=== PATIENT | male | born 1940 | race Caucasian/White ===

== ENCOUNTER 2017-01-12 04:06 | Emergency (ER) | payer MEDICARE, OTHER ==
[2017-01-12] MEDS ORDERED: Sodium Chloride 0.9% 1,000 ML IV ONE ×2 (04:34→05:58)
--- NOTE | 2017-01-12 04:36 | EDM.PDOC ---
ED HPI GENERAL MEDICAL PROBLEM - General Chief Complaint: Gastrointestinal Problem Stated Complaint: DIARRHEA Time Seen by Provider: 01/12/17 04:06 Source of Information: Reports: Patient History Limitations: Reports: No Limitations - History of Present Illness INITIAL COMMENTS - FREE TEXT/NARRATIVE: 76 y.o.w.m in prev healthy condition, came the the ed by PC due to N/V/D in the fast 6 hours.Pt stated he ate out last night. Pt denies blood in his stool , no travel outside [place], epigastric pain. No do dizziness but feels very weak. BP 110/63 pulse 73 temp 34.6 Onset Date: 01/11/17 Onset Time: 21:00 Duration: Hour(s):, Intermittent Location: Reports: Abdomen Quality: Reports: Burning Severity: Moderate Improves with: Reports: Rest Worsens with: Reports: Eating, Movement Context: Reports: Other (eating out) Associated Symptoms: Reports: Nausea/Vomiting, Weakness Bilateral Leg Pain Score (Numeric/FACES): 6 - Related Data Allergies Allergy/AdvReac Type Severity Reaction Status Date / Time No Known Allergies Allergy Verified 01/12/17 04:38 Home Meds: Home Meds Hydrochlorothiazide [Hydrochlorothiazide] 25 mg PO DAILY 01/12/17 [History] Levothyroxine [Levothroid] 137 mcg PO DAILY 01/12/17 [History] Ondansetron [Zofran ODT] 8 mg PO Q6H PRN #10 tab.dis 01/12/17 [Rx] ED ROS GENERAL - Review of Systems Review Of Systems: See Below Constitutional: Reports: No Symptoms HEENT: Reports: No Symptoms Respiratory: Reports: No Symptoms Cardiovascular: Reports: No Symptoms Endocrine: Reports: No Symptoms GI/Abdominal: Reports: Abdominal Pain (minor epigastric pain), Diarrhea, Nausea , Vomiting : Reports: No Symptoms Musculoskeletal: Reports: No Symptoms Skin: Reports: No Symptoms Neurological: Reports: No Symptoms Psychiatric: Reports: No Symptoms Hematologic/Lymphatic: Reports: No Symptoms Immunologic: Reports: No Symptoms ED EXAM, GI/ABD - Physical Exam Exam: See Below Exam Limited By: No Limitations General Appearance: Alert, WD/WN, Moderate Distress Eyes: Bilateral: Normal Appearance Ears: Normal External Exam Nose: Normal Inspection Throat/Mouth: Normal Lips, Normal Gums, No Airway Compromise, Other (dry mucosal membrane) Head: Atraumatic, Normocephalic Neck: Normal Inspection, Supple, Non-Tender Respiratory/Chest: No Respiratory Distress, Lungs Clear, Normal Breath Sounds, No Accessory Muscle Use, Chest Non-Tender Cardiovascular: Normal Peripheral Pulses, Regular Rate, Rhythm, No Edema, No Gallop, No JVD, No Murmur, No Rub GI/Abdominal Exam: Normal Bowel Sounds, Tender (epigastric area) (Male) Exam: Deferred Rectal (Males) Exam: Deferred Back Exam: Normal Inspection, Full Range of Motion Extremities: Normal Inspection, Normal Range of Motion, Non-Tender, No Pedal Edema Neurological: Alert, Oriented, CN II-XII Intact, Normal Cognition, Normal Gait, No Motor/Sensory Deficits Psychiatric: Normal Affect, Normal Mood Skin Exam: Warm, Dry, Intact, Normal Color, No Rash Lymphatic: No Adenopathy Course - Vital Signs Text/Narrative:: 76 y.o.w.m in prev healthy condition, came the the ed by PC due to N/V/D in the fast 6 hours.Pt stated he ate out last night. Pt denies blood in his stool , no travel outside [place], epigastric pain. No do dizziness but feels very weak. BP 110/63 pulse 73 temp 34.6 PE: thin 76 y.o.w.m NAD with dry mucosal membranes and decr. skin turgor, ambulating fine Labs: WBC 14.4 H/H nl BUN 34 Cr 1.7 GFR 39 Na 139 K 4.1 Impression: Dehydration, Gastroenteritis, Decr. GFR Tx: Zofran, Protonix, NS Reexam: Improved, was ambulating on D/C Plan: D/C with instructions Last Recorded V/S: Last Vital Signs Temp 34.6 C L 01/12/17 05:12 Pulse 73 01/12/17 05:12 Resp 18 01/12/17 05:12 BP 100/61 01/12/17 05:12 Pulse Ox 99 01/12/17 05:12 - Orders/Labs/Meds Orders: Active Orders 24 hr Category Date Time Status CULTURE-STOOL [MREF] Stat Lab 01/12/17 04:34 Uncollected LACTOFERRIN, FECAL BY EDOUARD [REF] Stat Lab 01/12/17 04:34 Ordered Sodium Chloride 0.9% [Saline Flush] Med 01/12/17 04:38 Active 10 ml FLUSH ASDIRECTED PRN Saline Lock Insert [OM.PC] Routine Oth 01/12/17 04:38 Ordered Medication Orders Sodium Chloride (Saline Flush) 10 ml FLUSH ASDIRECTED PRN PRN Reason: Keep Vein Open Last Admin: 01/12/17 04:44 Dose: 10 ml Labs: Laboratory Tests 01/12/17 01/12/17 01/12/17 Range/Units 05:00 05:00 05:00 WBC 14.4 H (4.5-12.0) X10-3/uL RBC 4.88 (4.30-5.75) x10(6)uL Hgb 14.9 (11.5-15.5) g/dL Hct 44.2 (30.0-51.3) % MCV 90.8 (80-96) fL MCH 30.6 (27.7-33.6) pg MCHC 33.7 (32.2-35.4) g/dL RDW 12.7 (11.5-15.5) % Plt Count 348 (125-369) X10(3)uL MPV 8.4 (7.4-10.4) fL Add Manual Diff Yes Neutrophils % (Manual) 94 H (46-82) % Band Neutrophils % 1 (0-6) % Monocytes % (Manual) 4 (4-12) % Eosinophils % (Manual) 1 (0-5) % Sodium 139 (135-145) mmol/L Potassium 4.1 (3.5-5.3) mmol/L Chloride 105 (100-110) mmol/L Carbon Dioxide 22 L (23-29) mmol/L BUN 34 H (8-23) mg/dL Creatinine 1.7 H (0.6-1.3) mg/dL Est Cr Clr Drug Dosing 36.19 mL/min Estimated GFR (MDRD) 39 L (>60) BUN/Creatinine Ratio 20.0 (9-20) Glucose 169 H (80-116) mg/dL Calcium 8.9 (8.6-10.2) mg/dL Total Bilirubin 1.0 (0.1-1.3) mg/dL Direct Bilirubin 0.2 (0.1-0.2) mg/dL AST 22 (5-27) IU/L ALT 20 (14-26) IU/L Alkaline Phosphatase 54 L (56-112) IU/L Total Protein 8.0 (6.0-8.0) g/dL Albumin 4.6 (3.2-4.6) g/dL Amylase 47 (28-100) U/L Meds: Medications Generic Name Dose Route Start Last Admin Trade Name Neto PRN Reason Stop Dose Admin Sodium Chloride 10 ml 01/12/17 04:38 01/12/17 04:44 Saline Flush FLUSH 10 ml ASDIRECTED PRN Administration Keep Vein Open Discontinued Medications Generic Name Dose Route Start Last Admin Trade Name eNto PRN Reason Stop Dose Admin Sodium Chloride 1,000 mls @ 999 mls/hr 01/12/17 04:34 01/12/17 04:47 Normal Saline IV 01/12/17 05:34 999 mls/hr .BOLUS ONE Administration Sodium Chloride 1,000 mls @ 999 mls/hr 01/12/17 05:58 01/12/17 06:08 Normal Saline IV 01/12/17 06:58 999 mls/hr .BOLUS ONE Administration Ondansetron HCl 8 mg 01/12/17 05:58 01/12/17 06:26 Zofran IVPUSH 01/12/17 05:59 8 mg ONETIME ONE Administration Pantoprazole Sodium 40 mg 01/12/17 05:58 01/12/17 06:28 Protonix Iv IVPUSH 01/12/17 05:59 40 mg ONETIME ONE Administration Departure - Departure Time of Disposition: 07:20 Disposition: Home, Self-Care 01 Condition: Good Clinical Impression: Dehydration, Acute gastroenteritis - Discharge Information Prescriptions: Ondansetron [Zofran ODT] 8 mg PO Q6H PRN #10 tab.dis PRN Reason: Nausea Referrals: PCP,None [Ordering Only Provider] - Forms: ED Department Discharge Additional Instructions: Please advance diet as tolerated, please take zofran for nausea, please f/u, come back if your symptoms get worse acutely. - My Orders Last 24 Hours: My Active Orders 01/12/17 04:34 CULTURE-STOOL [MREF] Stat LACTOFERRIN, FECAL BY EDOUARD [REF] Stat 01/12/17 04:38 Sodium Chloride 0.9% [Saline Flush] 10 ml FLUSH ASDIRECTED PRN Saline Lock Insert [OM.PC] Routine - Assessment/Plan Last 24 Hours: My Active Orders 01/12/17 04:34 CULTURE-STOOL [MREF] Stat LACTOFERRIN, FECAL BY EDOUARD [REF] Stat 01/12/17 04:38 Sodium Chloride 0.9% [Saline Flush] 10 ml FLUSH ASDIRECTED PRN Saline Lock Insert [OM.PC] Routine
[2017-01-12] MEDS ORDERED: Sodium Chloride 0.9% 10 ML Syringe FLUSH PRN (04:38)
[2017-01-12 05:13] VITALS: BP 100/61
[2017-01-12] MEDS ORDERED: Pantoprazole 40 MG Vial IVPUSH ONE (05:58)
[2017-01-12] MEDS ORDERED: Ondansetron 4 MG/2 ML SDV IVPUSH ONE (05:58)
== END 2017-01-12 07:30 | disposition home or self-care (01) ==
LOC: FB.ED 04:06
DX: K52.9 Noninfective gastroenteritis and colitis, unspecified (principal); Z79.899 Other long term (current) drug therapy
CPT/HCPCS: 36415; 80048; 80076; 82150; 85025; 96361; 96374; 96375; 99284; C9113; J2405; J7040; J7050; 99283

== ENCOUNTER 2018-08-14 15:38 | Emergency (ER) | payer MEDICARE, OTHER ==
[2018-08-14] MEDS ORDERED: Diphtheria,Pertussis(Acell),Tetanus Vaccine 0.5 ML SDV IM ONE (15:59)
--- NOTE | 2018-08-14 16:00 | EDM.PDOC ---
ED HPI GENERAL MEDICAL PROBLEM - General Stated Complaint: HEAD INJURY Time Seen by Provider: 08/14/18 15:38 Source of Information: Reports: Patient History Limitations: Reports: No Limitations - History of Present Illness INITIAL COMMENTS - FREE TEXT/NARRATIVE: 78 y.o.w.m with a H/O HTN came to the ed after he fell backwards onto his head, while falling over an objet at work. Wound was bleeding, initially. 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 No LOC. Nl gait. No N/V/D. He was dizzy after the fall, which subsided BULB GRADER as well. Last TD? No SOB, no CP no Dizziness, no other acute med issues. BP 137/71 Pulse 77 Temp 36.8 RR 18 Pulse ox 98% on RA Onset Date: 08/14/18 Onset Time: 15:00 Duration: Hour(s):, Improving Location: Reports: Head Quality: Reports: Dull Severity: Mild Improves with: Reports: Rest Worsens with: Reports: Movement Context: Reports: Trauma (fell on post [place]) Associated Symptoms: Reports: No Other Symptoms head Pain Score (Numeric/FACES): 4 - Related Data Allergies Allergy/AdvReac Type Severity Reaction Status Date / Time No Known Allergies Allergy Verified 08/14/18 15:50 Home Meds: Home Meds Levothyroxine [Levothroid] 137 mcg PO DAILY 01/12/17 [History] Ondansetron [Zofran ODT] 8 mg PO Q6H PRN #10 tab.dis 01/12/17 [Rx] hydroCHLOROthiazide [Hydrochlorothiazide] 25 mg PO DAILY 01/12/17 [History] Folic Acid 1 tab PO DAILY 08/14/18 [History] Past Medical History Cardiovascular History: Reports: Hypertension Endocrine/Metabolic History: Reports: Hypoparathyroidism Social & Family History - Caffeine Use Caffeine Use: Reports: Coffee ED ROS GENERAL - Review of Systems Review Of Systems: See Below Constitutional: Reports: No Symptoms HEENT: Reports: No Symptoms Respiratory: Reports: No Symptoms Cardiovascular: Reports: No Symptoms Endocrine: Reports: No Symptoms GI/Abdominal: Reports: No Symptoms : Reports: No Symptoms Musculoskeletal: Reports: No Symptoms Skin: Reports: Wound (right post [place]) Neurological: Reports: No Symptoms Psychiatric: Reports: No Symptoms Hematologic/Lymphatic: Reports: No Symptoms Immunologic: Reports: No Symptoms ED EXAM, HEAD INJURY - Physical Exam Exam: See Below Exam Limited By: No Limitations General Appearance: Alert, WD/WN, Mild Distress, Thin Head: Normocephalic, Other (Post scalp LAC) Eyes: Bilateral Eye: Normal Inspection Ears: Normal External Exam, Normal Canal Nose: Normal Inspection, Normal Mucousa, No Blood Throat/Mouth: Normal Inspection, Normal Lips, Normal Voice, No Airway Compromise Neck: Non-Tender, Full Range of Motion, Normal Alignment, Normal Inspection Respiratory: No Respiratory Distress, Lungs Clear, Normal Breath Sounds Cardiovascular: Normal Peripheral Pulses, Regular Rate, Rhythm, No Edema GI/Abdominal Exam: Normal Bowel Sounds, Soft, Non-Tender, No Organomegaly (Male) Exam: Deferred Rectal (Males) Exam: Deferred Back Exam: Normal Inspection, Full Range of Motion Extremities: Normal Inspection, Normal Range of Motion, Non-Tender, Normal Capillary Refill Neurologic: No Motor/Sensory Deficits, Normal Mood/Affect, Oriented x 3 Skin: Normal Color, Warm/Dry - Freddie Coma Score Best Eye Response (Freddie): (4) Open Spontaneously Best Verbal Response (Warren): (5) Oriented Best Motor Response (Warren): (6) Obeys Commands Freddie Total: 15 ED LACERATION/WOUND & ASHLEE PROC - Laceration/Wound Repair Right Posterior Head Lac/wound length in cm: 3 Appearance: Stellate, Clean Distal NVT: Neuro & Vascular Intact, No Tendon Injury Anesthetic Type: Topical Local Anesthetic Volume: 3cc Skin Prep: Chlorhexidine (Hibiciens) Saline irrigation (cc's): 2 Exploration/Debridement/Repair: Wound Explored, In a Bloodless Field, Explored to Base Closed with: [place] # of Sutures: 8 Tetanus Status Addressed: Yes (given today) Complications: No Course - Vital Signs Text/Narrative:: 78 y.o.w.m with a H/O HTN came to the ed after he fell backwards onto his head, while falling over an objet at work. Wound was bleeding, initially. 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 No LOC. Nl gait. No N/V/D. He was dizzy after the fall, which subsided BULB GRADER as well. Last TD? No SOB, no CP no Dizziness, no other acute med issues. BP 137/71 Pulse 77 Temp 36.8 RR 18 Pulse ox 98% on RA PE: WNWD W M s/p fall and a LAC post [place] Imaging: CT head/ c spine: NAD as per RAD Impression: Head Lac S/P Fall, repaired in the ED Tx: Wound repair, Wound care, please see procedure note Reexam: Pt was doing fine in the ED Plan: D/C with instructions Last Recorded V/S: Last Vital Signs Temp 36.6 C 08/14/18 15:38 Pulse 77 08/14/18 15:38 Resp 18 08/14/18 15:38 BP 137/71 08/14/18 15:38 Pulse Ox 98 08/14/18 15:38 - Orders/Labs/Meds Orders: Active Orders 24 hr Category Date Time Status Vaccines to be Administered [RC] PER UNIT ROUTINE Care 08/14/18 16:00 Active Cervical Spine wo Cont [CT] Stat Exams 08/14/18 15:59 Ordered Head wo Cont [CT] Stat Exams 08/14/18 15:59 Taken Meds: Medications Discontinued Medications Generic Name Dose Route Start Last Admin Trade Name Freq PRN Reason Stop Dose Admin Diphtheria/Tetanus/Acell Pertussis 0.5 ml 08/14/18 15:59 08/14/18 16:30 Adacel IM 08/14/18 16:00 0.5 ml .ONCE ONE Administration Lidocaine/Tetracaine 5 ml 08/14/18 16:49 08/14/18 17:01 Let Soln TOP 08/14/18 16:50 5 ml ONETIME ONE Administration Departure - Departure Time of Disposition: 17:31 Disposition: Home, Self-Care 01 Condition: Good Clinical Impression: Laceration - Discharge Information Instructions: Laceration Care, Adult, [id number], Stitches, [place], or Adhesive Wound Closure, [id number] Referrals: PCP,None [Primary Care Provider] - Forms: ED Department Discharge Additional Instructions: Please apply Neosporin ointment to wound twice a day fpr 5 days, wound check in -2-3 days, [place] for severe pain. Stable removal in 7-10 days. Please came back if your symptoms get worse acutely - My Orders Last 24 Hours: My Active Orders 08/14/18 15:59 Cervical Spine wo Cont [CT] Stat Head wo Cont [CT] Stat 08/14/18 16:00 Vaccines to be Administered [RC] PER UNIT ROUTINE - Assessment/Plan Last 24 Hours: My Active Orders 08/14/18 15:59 Cervical Spine wo Cont [CT] Stat Head wo Cont [CT] Stat 08/14/18 16:00 Vaccines to be Administered [RC] PER UNIT ROUTINE
[2018-08-14] MEDS ORDERED: Lidocaine/EPINEPHrine/Tetracaine Soln 5 ML Each TOP ONE (16:49)
[2018-08-14 18:55] VITALS: BP 146/76
--- NOTE | 2018-08-15 08:58 | CT ---
INDICATION: Fell hitting back of head on a heater. CT HEAD WITHOUT CONTRAST: Spiral examination of the brain was obtained axially with sagittal and coronal reconstructions 08/14/18 and compared with 03/27. Total exam DLP = 1270.76 mGy-cm. There is thickening of the lining of the left sphenoidal air cell and the base of the right maxillary antrum and left maxillary antrum. Very minimal thickening of the lining of the right sphenoidal air cell was noted. No finding to strongly suggest acute sinusitis was seen, however. Mastoid air cells appear to be fairly well aerated. No definite cranial fracture site was seen. Calcifications are noted in the internal carotid arteries. No shift of midline structures or ventricular abnormalities were seen. Septum pellucidum cavum noted as previously. Somewhat increased low density abnormality is noted in the frontal parietal white matter on the right and to a lesser extent on the left. It may be slightly more prominent on the right then previously suggesting mild degree of progression of mild microvascular disease. Tiny lacunar infarct is suggested at the caudate nucleus on the right which appears to be new compared with the previous study. No other abnormal areas of density were identified--no bleeding site or hematoma was seen. The orbits appear to be intact. IMPRESSION: 1. No definite acute intracranial abnormality. 2. There are some areas of decreased density in the white matter, one on the right is more prominent than previously and may simply represent progressive microvascular disease, although a tiny contusion could also be present, this being in the right frontal parietal white matter. 3. Cerebrovascular disease. 4. Thickening of the linings of some of the paranasal sinuses. No definite acute sinusitis suggested, however. 5. Probable mild microvascular disease type changes. Report was called to Preston at 1645 hours approximately. [facility]
--- NOTE | 2018-08-15 09:08 | CT ---
INDICATION: Fell hitting back of head on a heater. CT CERVICAL SPINE: Spiral 2.5 mm axial sections were obtained through the cervical spine with sagittal and coronal reconstructions 08/14/18 and compared with 12/28/09. Total exam DLP = 327.49 mGy-cm. There is noted bulging disc material centrally at the C2-3 level and at the C6- 7 level which appears similar to the previous examination. Fairly severe hypertrophic degenerative changes are noted at the atlantoodontoid joint with virtually no remaining joint space of a significant portion of that joint space. Severe degenerative disc disease with sclerosis and subchondral cystic change is noted at the C3-4 level and at the C5-6 level as well with some progressive of disease suggested at these levels especially C5-6. Degenerative hypertrophic changes and disc disease are also noted at the C7-T1 which appear significantly progressive compared with the previous study. There appears to be fairly severe narrowing of the C3-4 neural foramen on the right and C5-6 neural foramen on the left. Relatively minimal hypertrophic degenerative changes are noted at the C4-5 and C6-7 levels. Vertebral elements appear to be fairly well aligned except for degenerative change with no definite acute fracture or dislocation identified. Prevertebral spaces appear to be normal. The atlas and odontoid appear to be negative for fracture. Hypertrophic changes are also noted at the lateral masses of C3-4, C4-5 and C5- 6 as well as C6-7 most prominent on the right. Degenerative changes at the uncinate joints are most severe at C3-4 but are also moderately severe at C5-6. IMPRESSION: 1. No acute fracture or dislocation identified. 2. Osteoarthritis and degenerative disc disease is noted. Report was called to Dr. Johnston at 1652 hours. [facility]
== END 2018-08-14 17:50 | disposition home or self-care (01) ==
LOC: FB.ED 15:38
DX: S01.01XA Laceration without foreign body of scalp, initial encounter (principal); Z23 Encounter for immunization; I10 Essential (primary) hypertension; E21.3 Hyperparathyroidism, unspecified; W19.XXXA Unspecified fall, initial encounter; Y99.0 Civilian activity done for income or pay
CPT/HCPCS: 12002; 70450; 72125; 90471; 90715; 99283; A9270

== ENCOUNTER 2021-02-24 14:01 | Emergency (ER) | payer MEDICARE, OTHER ==
[2021-02-24] MEDS ORDERED: Sodium Chloride 0.9% 500 ML IV ONE ×2 (14:30→15:15)
[2021-02-24] MEDS ORDERED: Sodium Chloride 0.9% 10 ML Syringe FLUSH PRN (14:30)
[2021-02-24] MEDS: Diltiazem 25 MG/5 ML SDV IVPUSH STA ×2 (14:42→20:45)
--- NOTE | 2021-02-24 16:02 | EDM.PDOC ---
ED HPI GENERAL MEDICAL PROBLEM - General Chief Complaint: Cardiovascular Problem Stated Complaint: COVID Time Seen by Provider: 02/24/21 14:25 Source of Information: Reports: Patient, Family History Limitations: Reports: No Limitations - History of Present Illness INITIAL COMMENTS - FREE TEXT/NARRATIVE: Patient presented to the ED because of tachycardia. He went to the clinic to be tested for Covid and it turns out positive. During his triage he was found to be tachycardic with HR of 130'5. there is no associated chest pain, palpitations, dyspnea. There is no N/V/D. - Related Data Allergies Allergy/AdvReac Type Severity Reaction Status Date / Time No Known Allergies Allergy Verified 08/14/18 15:50 Home Meds: Home Meds Levothyroxine [Levothroid] 137 mcg PO DAILY 01/12/17 [History] Ondansetron [Zofran ODT] 8 mg PO Q6H PRN #10 tab.dis 01/12/17 [Rx] hydroCHLOROthiazide [Hydrochlorothiazide] 25 mg PO DAILY 01/12/17 [History] Folic Acid 1 tab PO DAILY 08/14/18 [History] Apixaban [Eliquis] 5 mg PO BID #60 tablet 02/24/21 [Rx] Past Medical History Cardiovascular History: Reports: Hypertension Endocrine/Metabolic History: Reports: Hypoparathyroidism Social & Family History - Family History Family Medical History: No Pertinent Family History - Caffeine Use Caffeine Use: Reports: Coffee ED ROS GENERAL - Review of Systems Review Of Systems: See Below Constitutional: Reports: No Symptoms HEENT: Reports: No Symptoms Respiratory: Reports: No Symptoms Cardiovascular: Reports: No Symptoms Endocrine: Reports: No Symptoms GI/Abdominal: Reports: No Symptoms : Reports: No Symptoms Musculoskeletal: Reports: No Symptoms Skin: Reports: No Symptoms Neurological: Reports: Syncope Psychiatric: Reports: No Symptoms Hematologic/Lymphatic: Reports: No Symptoms ED EXAM, GENERAL - Physical Exam Exam: See Below Exam Limited By: No Limitations General Appearance: Alert, No Apparent Distress Ears: Normal External Exam, Normal Canal, Hearing Grossly Normal, Normal TMs Nose: Normal Inspection, Normal Mucosa, No Blood Throat/Mouth: Normal Inspection, Normal Lips, Normal Teeth, Normal Oropharynx, Normal Voice Head: Atraumatic, Normocephalic Neck: Normal Inspection, Supple, Non-Tender, Full Range of Motion Respiratory/Chest: No Respiratory Distress, Normal Breath Sounds, Decreased Breath Sounds Cardiovascular: Normal Peripheral Pulses, Regular Rate, Rhythm, No Edema, No Gallop, No JVD, No Murmur GI/Abdominal: Normal Bowel Sounds, Soft, Non-Tender, No Organomegaly, No Distention, No Abnormal Bruit Back Exam: Normal Inspection, Full Range of Motion Extremities: Normal Inspection, Normal Range of Motion, Non-Tender Neurological: Alert, Oriented, CN II-XII Intact #1 Interpretation EKG Date: 02/24/21 Time: 14:14 Rhythm: A-Fib Rate (Beats/Min): 148 [place]: Normal P-Wave: Present QRS: Normal ST-T: Normal QT: Normal Comparison: NA - No Prior EKG EKG Interpretation Comments: AFIB with RVR #2 Interpretation EKG Date: 02/24/21 Time: 16:40 Rhythm: NSR Rate (Beats/Min): 68 [place]: Normal P-Wave: Present QRS: Normal ST-T: Normal QT: Normal Comparison: Change From Previous EKG EKG Interpretation Comments: NSR Course - Vital Signs Text/Narrative:: Lab/EKG/CXR result was reviewed and discussed with patient NS 1 L bolus - Orders/Labs/Meds Orders: Active Orders 24 hr Category Date Time Status EKG Documentation Completion [RC] ASDIRECTED Care 02/24/21 14:30 Active EKG Documentation Completion [RC] ASDIRECTED Care 02/24/21 16:15 Active Chest 1V Frontal [CR] Stat Exams 02/24/21 15:04 Taken TSH ULTRASENSITIVE [CHEM] Stat Lab 02/24/21 16:16 Ordered Sodium Chloride 0.9% [Saline Flush] Med 02/24/21 14:30 Active 10 ml FLUSH ASDIRECTED PRN Saline Lock Insert [OM.PC] Routine Oth 02/24/21 14:30 Ordered EKG 12 Lead [EK] Routine Ther 02/24/21 14:30 Ordered EKG 12 Lead [EK] Routine Ther 02/24/21 16:14 Ordered Medication Orders Sodium Chloride (Sodium Chloride 0.9% 10 Ml Syringe) 10 ml FLUSH ASDIRECTED PRN PRN Reason: Keep Vein Open Labs: Laboratory Tests 02/24/21 02/24/21 02/24/21 Range/Units 14:55 14:55 14:55 WBC 6.0 (3.2-10.1) x10-3/uL RBC 3.87 L (3.90-5.90) x10(6)uL Hgb 11.5 L (12.9-17.7) g/dL Hct 35.6 L (38.3-50.1) % MCV 92.0 (80.8-98.7) fL MCH 29.8 (27.0-33.3) pg MCHC 32.4 (28.7-35.3) g/dL RDW 12.8 (12.4-15.0) % Plt Count 287 (117-477) x10(3)uL MPV 7.2 (6.7-11.0) fL Neut % (Auto) 79.4 H (40.3-71.8) % Lymph % (Auto) 7.3 L (15.8-45.3) % [place] % (Auto) 12.1 (5.5-15.2) % Eos % (Auto) 1.0 (0.1-6.8) % Baso % (Auto) 0.2 L (0.3-3.8) % Neut # (Auto) 4.8 (1.7-6.9) x10-3/uL Lymph # (Auto) 0.4 L (0.5-4.5) x10-3/uL [place] # (Auto) 0.7 (0.0-1.2) x10-3/uL Eos # (Auto) 0.1 (0.0-0.6) x10-3/uL Baso # (Auto) 0.0 (0.0-0.3) x10-3/uL Sodium 140 (135-145) mmol/L Potassium 5.1 (3.5-5.3) mmol/L Chloride 105 (100-110) mmol/L Carbon Dioxide 24 (21-32) mmol/L BUN 34 H (7-18) mg/dL Creatinine 1.9 H (0.70-1.30) mg/dL Est Cr Clr Drug Dosing TNP Estimated GFR (MDRD) 34 L (>60) BUN/Creatinine Ratio 17.9 (9-20) Glucose 99 (80-116) mg/dL Calcium 8.2 L (8.6-10.2) mg/dL Total Bilirubin 0.3 (0.1-1.3) mg/dL AST 19 (5-25) IU/L ALT 29 (12-36) U/L Alkaline Phosphatase 65 (56-112) IU/L Troponin I 8.8 (4.0-60.3) pg/mL Total Protein 6.4 (6.0-8.0) g/dL Albumin 3.5 (3.2-4.6) g/dL Globulin 2.9 g/dL Albumin/Globulin Ratio 1.2 Meds: Medications Generic Name Dose Route Start Last Admin Trade Name Freq PRN Reason Stop Dose Admin Sodium Chloride 10 ml 02/24/21 14:30 Sodium Chloride 0.9% 10 Ml Syringe FLUSH ASDIRECTED PRN Keep Vein Open Discontinued Medications Generic Name Dose Route Start Last Admin Trade Name Freq PRN Reason Stop Dose Admin Diltiazem HCl 15 mg 02/24/21 14:30 02/24/21 14:42 Diltiazem 25 Mg/5 Ml Sdv IVPUSH 02/24/21 14:31 15 mg NOW STA Administration Departure - Departure Time of Disposition: 16:15 Disposition: Home, Self-Care 01 Condition: Good Clinical Impression: Afib, Anemia, CKD (chronic kidney disease) Prescriptions: Apixaban [Eliquis] 5 mg PO BID #60 tablet Instructions: Chronic Kidney Disease, Adult, [id number], Atrial Fibrillation, [id number] Referrals: PCP,None [Primary Care Provider] - Forms: ED Department Discharge Additional Instructions: Please read discharge instructions on AFIB, Chronic Kidney Disease Eliquis 5 mg twice daily Follow up at [facility] this week - My Orders Last 24 Hours: My Active Orders 02/24/21 14:30 EKG Documentation Completion [RC] ASDIRECTED Sodium Chloride 0.9% [Saline Flush] 10 ml FLUSH ASDIRECTED PRN Saline Lock Insert [OM.PC] Routine EKG 12 Lead [EK] Routine 02/24/21 15:04 Chest 1V Frontal [CR] Stat 02/24/21 16:14 EKG 12 Lead [EK] Routine 02/24/21 16:15 EKG Documentation Completion [RC] ASDIRECTED 02/24/21 16:16 TSH ULTRASENSITIVE [CHEM] Stat - Assessment/Plan Last 24 Hours: My Active Orders 02/24/21 14:30 EKG Documentation Completion [RC] ASDIRECTED Sodium Chloride 0.9% [Saline Flush] 10 ml FLUSH ASDIRECTED PRN Saline Lock Insert [OM.PC] Routine EKG 12 Lead [EK] Routine 02/24/21 15:04 Chest 1V Frontal [CR] Stat 02/24/21 16:14 EKG 12 Lead [EK] Routine 02/24/21 16:15 EKG Documentation Completion [RC] ASDIRECTED 02/24/21 16:16 TSH ULTRASENSITIVE [CHEM] Stat
[2021-02-24] MEDS ORDERED: Sodium Chloride 0.9% 500 ML IV SCH (21:00)
[2021-02-24 21:11] VITALS: BP 117/69; PULSE 73
== END 2021-02-24 17:20 | disposition home or self-care (01) ==
LOC: FB.ED 14:01
DX: I48.91 Unspecified atrial fibrillation (principal); I12.9 Hypertensive chronic kidney disease with stage 1 through stage 4 chronic kidney disease, or unspecified chronic kidney disease; N18.9 Chronic kidney disease, unspecified; D63.1 Anemia in chronic kidney disease; E03.9 Hypothyroidism, unspecified; Z79.01 Long term (current) use of anticoagulants; Z79.899 Other long term (current) drug therapy
CPT/HCPCS: 36415; 71045; 80053; 84443; 84484; 85025; 93005; 99285; J7030; J3490

== ENCOUNTER 2021-05-14 21:54 | Emergency (ER) | payer MEDICARE, OTHER ==
[2021-05-14] MEDS ORDERED: methylPREDNISolone Sodium Succinate 125 MG/2 ML SDV IM STA (22:03)
[2021-05-14 22:07] VITALS: BP 147/71; PULSE 70
[2021-05-14] MEDS ORDERED: Albuterol/Ipratropium 3.0-0.5 MG/3 ML Neb Soln NEB ONE (22:09)
== END 2021-05-14 22:35 | disposition home or self-care (01) ==
LOC: FB.ED 21:54 → SUPCPDRO 21:54 → FB.ED 22:35
DX: J45.901 Unspecified asthma with (acute) exacerbation (principal); I10 Essential (primary) hypertension; Z79.899 Other long term (current) drug therapy; Z79.01 Long term (current) use of anticoagulants; Z86.16 Personal history of COVID-19
CPT/HCPCS: 94640; 96372; 99284; J2930; J7620-GY

== ENCOUNTER 2024-03-08 17:10 | Emergency (ER) | payer MEDICARE, OTHER ==
[2024-03-08 19:17] VITALS: BP 124/75; PULSE 84
== END 2024-03-08 19:20 | disposition home or self-care (01) ==
LOC: FB.ED 17:10
DX: K59.00 Constipation, unspecified (principal); I10 Essential (primary) hypertension; J45.909 Unspecified asthma, uncomplicated; E20.9 Hypoparathyroidism, unspecified; Z86.16 Personal history of COVID-19; Z79.899 Other long term (current) drug therapy; Z79.890 Hormone replacement therapy
CPT/HCPCS: 74019; 99283